=== PATIENT | male | born 1955 | race Caucasian/White ===

== ENCOUNTER 2017-02-21 07:43 | Inpatient (IN) ==
--- NOTE | 2017-02-21 08:07 | Anesthesia Evaluation PreOp ---
Date of Encounter: 02/21/17 Time of Encounter: 08:05 - Past History Planned Operation: Robotic Sigmoid Colectomy Cardiac History: Hyperlipidemia, Other (PAD) Pulmonary History: Former smoker RAD TECHNOLOGIST History: Denies Any Significant HX Other Medical History: Denies Any Significant HX, Other (Colon CA) Anesthesia History: No Prior Anesthetic Complications, Past Anesthesia ( Colonoscopy, Angiolplasty) Alcohol Use: recent Drug use: none Medications and Allergies Atorvastatin Calcium [Lipitor] 20 mg PO DAILY 04/27/16 [History] Tamsulosin [Flomax] 0.8 mg PO QPM 04/27/16 [History] Allergies No Known Allergies Allergy (Verified 01/29/17 11:55) - Meds/Allergy Pre-op Review Medications Reviewed: Yes Allergies Reviewed: Yes Beta Blockers on Current Med List: No Anesthesia Results - Labs Laboratory Tests 12/31/16 02/06/17 02/15/17 15:00 14:34 09:47 WBC 6.2 Hgb 12.9 Hct 40.1 Plt Count 234 INR 1.1 Sodium 137 Potassium 3.4 L Chloride 100 Carbon Dioxide 26 BUN 5 L Creatinine 0.78 - Imaging EKG: image reviewed (SR) Anesthesia Exam O2 Sat Height 1.83 m Height 1.83 m Weight 85.729 kg Weight 85.729 kg O2 Sat by Pulse Oximetry 100 Vital Signs Temp Pulse Resp BP Pulse Ox 97.9 F 90 18 147/75 100 02/21/17 08:00 02/21/17 08:00 02/21/17 08:00 02/21/17 08:00 02/21/17 08:00 Height: 6' Weight: 189# NPO (# of Hours): > 8 hrs Pain Scale: 0 Pain Scale Used: Numeric (1 - 10) - HEENT Pupil (Motor): Pupils equal, EOMI Mallampati: III Teeth: Poor dentition Oral Opening: Greater than 3 - RAD TECHNOLOGIST LOC: Oriented RAD TECHNOLOGIST Motor: Normal RUE, Normal LUE, Normal RLE, Normal LLE, Normal Face RAD TECHNOLOGIST Sensory: Normal: RUE, LUE, RLE, LLE, Face - Cardiac Rhythm: Regular Murmur: None JVD: No Carotid Bruit: No - Pulmonary Breath Sounds: bilateral Clear Respiratory Effort: Symmetrical Anesthesia Assess/Plan ASA Score: 2 Modified Humberto Scale for Level of Consciousness: Cooperative, oriented, and tranquil Anesthetic Plan: General Autologous Blood: Yes Monitoring Plan: Standard Monitors Recovery Plan: PACU
[2017-02-21] MEDS: Ringers Solution, Lactated 1,000 ML IVC SCH (08:38)
[2017-02-21] MEDS ORDERED: cefOXitin 2,000 MG in D5% in Water (Mini-Bag+) 100 ML IVPB ONE (08:43)
[2017-02-21] MEDS ORDERED: *HR* Heparin 5,000 UNIT/ML VIAL SQ ONE (08:44)
--- NOTE | 2017-02-21 08:46 | History & Physical Report ---
Date of Encounter: 02/21/17 Time of Encounter: 08:46 24 Hour HP Update - Instructions Instructions: If the History and Physical is less than 30 days old and was completed prior to A.M. admission and or procedure and has NOT been updated on calendar day of procedure please complete this update prior to performing procedure. - Update Patient reports changes in Medical Condition: No Changes in assessment/condition: No Changes in Medication: No Preop tests/diagnostics Reviewed: Yes Surgery Remains Indicated: Yes Consent for Planned Operative Procedure(s) Verified: Yes - Pre-Operative Checklist Preoperative Checklist Indicated: Yes Prophylactic Antibiotic Ordered: Yes Home Medications Include Beta Mary: No
[2017-02-21] MEDS ORDERED: *HR* Midazolam HCl 2 MG/2 ML VIAL ONE (09:30)
[2017-02-21] MEDS ORDERED: *HR* Propofol 200 MG/20 ML VIAL IVP ONE (09:30)
[2017-02-21] MEDS ORDERED: *HR* FentaNYL (PF) 100 MCG/2 ML VIAL ONE (09:30)
[2017-02-21] MEDS ORDERED: Lidocaine -MPF 2% 2 ML VIAL ONE (09:30)
[2017-02-21] MEDS ORDERED: *HR* Rocuronium Bromide 50 MG/5 ML VIAL ONE (09:30)
[2017-02-21] MEDS ORDERED: *HR* HYDROmorphone 2 MG/ML SYRINGE ONE (09:30)
[2017-02-21] MEDS ORDERED: Neostigmine Methylsulfate 3 MG/3 ML SYRINGE ONE (09:32)
[2017-02-21] MEDS ORDERED: *HR* HYDROmorphone (PF) 1 MG/ML SYRINGE IVP PRN (10:06)
[2017-02-21] MEDS ORDERED: Naloxone 0.4 MG/ML INJ IVP PRN ×2 (10:06→13:56)
[2017-02-21] MEDS ORDERED: Ondansetron 4 MG/2 ML VIAL IVP ONE (10:06)
[2017-02-21] MEDS ORDERED: *HR* Meperidine 25 MG/ML SYRINGE IVP PRN (10:06)
[2017-02-21] MEDS ORDERED: Albuterol 2.5 MG/3 ML NEBULIZER IH ONE (10:06)
[2017-02-21] MEDS ORDERED: *HR* Labetalol 100 MG/20 ML MDV IVP PRN (10:06)
[2017-02-21] MEDS ORDERED: Dexamethasone 4 MG/ML VIAL ONE (10:30)
[2017-02-21] MEDS ORDERED: Ondansetron 4 MG/2 ML VIAL ONE (10:30)
--- NOTE | 2017-02-21 13:47 | Anesthesia Evaluation Post Op ---
Date of Encounter: 02/21/17 Time of Encounter: 13:46 - Vital Signs Vital Signs: Vital Signs/O2 Sat, Most Current Temp Pulse Resp BP Pulse Ox 97.3 F L 62 14 149/75 100 02/21/17 13:25 02/21/17 13:45 02/21/17 13:45 02/21/17 13:45 02/21/17 13:45 - Lungs Lungs: Clear Ascult./Percussion - Airway Airway: Non-obstructed - Cardiovascular Regular Rate - Mental Status Mental Status: Alert & Oriented, Answers Appropriately - Pain Pain Scale: 0 Pain Scale used: Numeric (1 - 10) - Nausea Vomiting Nausea Vomiting: Not Present - Hydration Hydration: Ice chips, Gonzalez catheter - Discharge PostOp Status: Transfer Patient to floor
[2017-02-21] MEDS ORDERED: Ondansetron 4 MG/2 ML VIAL IVP PRN (13:56)
[2017-02-21] MEDS ORDERED: *HR* HYDROmorphone 20 MG/20 ML PCA IV PRN (13:58)
--- NOTE | 2017-02-21 14:02 | Operative Note ---
Date of procedure: 02/21/17 Pre-op diagnosis: Rectosigmoid cancer Post-op diagnosis: same Procedure: Robotic rectosigmoid resection with 29 mm EEA stapling Anesthesia: BEBA Surgeon: Morgan Freire Estimated blood loss (cc): 15 Condition: stable Disposition: same day Procedure in Detail: After informed consent, patient taken operating room placed supine position. After adequate sedation anesthesia patient was placed in a lithotomy position. After proper timeout a 12 mm cannula site was placed right superior to the umbilicus. Pneumoperitoneum was greater. A 13 mm cannula was placed in right lower quadrant. 5 mm camera was placed in the right upper quadrant. An 8 mm cannula was placed in subxiphoid region followed by another 8 mm in the left lower quadrant. Patient was placed in a headdown position. The robot was docked over the patient's left hip. Small bowel swept out of the pelvis. Rectosigmoid colon was then grasped and retracted cephalad. The peritoneum was then scored level of the sacral promontory. The left ureter was identified and kept on harm's way. The inferior mesenteric artery was then taken with a vessel sealer. The lateral rectosigmoid stalks were taken down the vessel sealer. The dissection was carried out down to approximate 4 cm above the pelvic floor. Rectosigmoid colon was dissected free from the retro-pubic tubercle region. Once it was freed a 45 mm robotic Endo staplers fired across the rectum. Once it was retracted and area was demarcated on the sigmoid colon for transection. Indocyanine green was infused and we had excellent perfusion. A counterincision was made in the suprapubic region. Dissection carried down the anterior rectus sheath. The rectus muscles were then divided in the midline with Anna clamp. Once they were split the rectosigmoid colon was delivered. Sayra bowel clamps are used to place across the colon proximal and distal and transected. Allis clamps are placed on the bowel and then a pursestring suture device placed on the colon. 3-0 Prolene suture was passed. A pursestring sutures and created and a 29 mm EEA anvil was placed. Suture was tied and secured. Colon was then placed back in the pelvis. The stapler was passed through the anal canal and to the rectal stump and then the spear was placed through the staple line. The anvil was then connected secured and fired. There were 2 excellent donuts. A leak test revealed no leak. At that point the procedure was terminated. All incisions are closed with 0 Vicryl suture and 4-0 Vicryl suture. Marcaine was inserted in the Pfannenstiel incision. She tolerated the procedure well.
[2017-02-21] MEDS: D5% in 0.45% NACL 1,000 ML IVC SCH (14:31)
[2017-02-22] MEDS: D5% in 0.45% NACL 1,000 ML IVC SCH (04:21)
[2017-02-22 04:37] LABS: Basophils % 0.1 %; Hematocrit 37.7 % (37.5-50.1); Hemoglobin 12.4 g/dL (12.9-16.9); Immature Granulocytes % 0.4 % (0-4); Lymphocytes # 0.7 K/mcL (0.6-4.6); Lymphocytes % 5.9 %; Mean Corpuscular HGB Conc 32.9 g/dL (31.6-35.5); Mean Corpuscular Volume 85.1 fL (83.0-100.0); Mean Platelet Volume 11.2 fL (9.4-12.4); Monocytes % 6.3 %; Neutrophils # 10.3 K/mcL (1.6-8.9); Platelet Count 193 K/mcL (140-400); Red Blood Count 4.43 M/mcL (4.19-5.50); Red Cell Distribution Width 13.2 % (11.5-14.5); Segmented Neutrophils % 87.3 %
[2017-02-22 04:40] LABS: Monocytes # 0.7 K/mcL (0.0-1.3)
[2017-02-22 04:58] LABS: BUN/Creatinine Ratio 4 (6-26); Calcium 8.9 mg/dL (8.6-10.8); Carbon Dioxide 26 mEq/L (19-29); Chloride 103 mEq/L (98-109); Glucose 132 mg/dL (70-99); Osmolality,Calculated 286 (280-300); Potassium 3.3 mEq/L (3.5-4.5); Sodium 139 mEq/L (136-145); eGFR For African Americans > 60 (> 60); eGFR For Non-African Americans > 60 (> 60)
[2017-02-22 05:02] LABS: Blood Urea Nitrogen 3 mg/dL (8-26)
[2017-02-22] MEDS: Ringers Solution, Lactated 1,000 ML IVC SCH (09:58)
--- NOTE | 2017-02-22 12:41 | General Surgery Progress Note ---
Date of Encounter: 02/22/17 Time of Encounter: 12:30 - Assessment and Plan (1) Rectosigmoid cancer Current Visit: Yes Status: Acute POD #1 from a Robotic rectosigmoid resection with 29 mm EEA stapling with Dr. Freire Advance to full liquid diet saline lock IV fluids Out of bed to chair and ambulate hallways TID Supportive care/pain control IS every 1 hour while awake Pathology pending (2) Hypertension Current Visit: Yes Status: Acute Hydralazine every 6 hours prn Continue to monitor and adjust as necessary Qualifiers: Hypertension type: unspecified secondary hypertension Qualified Code(s): I15.9 - Secondary hypertension, unspecified; I15 - Secondary hypertension (3) Hypokalemia Current Visit: Yes Status: Acute Replace potassium Repeat am labs (4) DVT prophylaxis Current Visit: Yes Status: Acute Heparin 5,000 units SQ twice daily for DVT prophylaxis EPCDs to bilateral lower extremities for DVT prophylaxis Subjective Patient reports: still having pain (post-surgical (well controlled)), tolerating liquids well, flatus, no bowel movement, afebrile Objective Vital Signs - Last 8 Hours Temp Pulse Resp BP Pulse Ox 02/22/17 10:59 98.8 F 69 16 167/70 98 02/22/17 07:00 98.1 F 65 14 178/70 96 Intake and Output 02/21/17 02/22/17 02/22/17 23:59 07:59 15:59 Intake Total 600 / 600 1000 / 1000 Output Total 1275 / 1275 1075 / 1075 950 / 950 Balance -675 / -675 -75 / -75 -950 / -950 Intake: IV Fluids 1000 / 1000 D5% And 0.45% Nacl 1000 1000 / 1000 Ml Bag 1,000 ML @ 75 mls/ hr IVC .[id number] DELILAH Rx#: [id number] Oral 600 / 600 0 / 0 Output: Catheter 1275 / 1275 1075 / 1075 950 / 950 Other: Weight 87.8 kg Patient Weight 02/22/17 23:59 Weight 87.8 kg - General physical appearance well developed, well nourished, no distress - Eyes normal ocular movement - ENT normal mucosa, atraumatic, normocephalic - Neck Neck exam: trachea midline - Respiratory normal expansion, normal respiratory effort, clear to auscultation - Cardiovascular Cardiovascular exam: Present: RRR - Abdomen Abdomen: Present: bowel sounds present, soft, tender (minimal expected post- operative tenderness) Abdominal Tenderness: suprapubic - Incision Incision: Present: clean and dry, intact - Genitourinary other (morelos catheter to SD with clear, yellow urine) - Neurologic CN 2-12 grossly intact - Psychiatric oriented to time, oriented to person, oriented to place, speech is normal, memory intact - Labs 02/22/17 04:02 02/22/17 04:02 Diabetes panel 02/22/17 Range/Units 04:02 Sodium 139 (136-145) mEq/L Potassium 3.3 L (3.5-4.5) mEq/L Chloride 103 (98-109) mEq/L Carbon Dioxide 26 (19-29) mEq/L BUN 3 L (8-26) mg/dL Creatinine 0.73 (0.72-1.25) mg/dL Glucose 132 H (70-99) mg/dL Calcium 8.9 (8.6-10.8) mg/dL Calcium panel 02/22/17 Range/Units 04:02 Calcium 8.9 (8.6-10.8) mg/dL Pituitary panel 02/22/17 Range/Units 04:02 Sodium 139 (136-145) mEq/L Potassium 3.3 L (3.5-4.5) mEq/L Chloride 103 (98-109) mEq/L Carbon Dioxide 26 (19-29) mEq/L BUN 3 L (8-26) mg/dL Creatinine 0.73 (0.72-1.25) mg/dL Glucose 132 H (70-99) mg/dL Calcium 8.9 (8.6-10.8) mg/dL Adrenal panel 02/22/17 Range/Units 04:02 Sodium 139 (136-145) mEq/L Potassium 3.3 L (3.5-4.5) mEq/L Chloride 103 (98-109) mEq/L Carbon Dioxide 26 (19-29) mEq/L BUN 3 L (8-26) mg/dL Creatinine 0.73 (0.72-1.25) mg/dL Glucose 132 H (70-99) mg/dL Calcium 8.9 (8.6-10.8) mg/dL - VTE Documentation of Mechanical Device: Intermittent pneumatic compression device Consult Discharge Plan - Plan Referrals: Liza Melendez DO [Primary Care Provider] - Lelia Pringle CNP [Advanced Practice Nurse] - 03/14/17 10:15 am - Attending Attestation I examined this patient and my medical decision-making was reviewed with the X RAY TECHNICIAN/PA/Advanced Practice Nurse/Resident Physician. I agree with the documented findings, disposition and treatment plan as described except to the extent set forth below.
[2017-02-22] MEDS: *HR* Heparin 5,000 UNIT/ML VIAL SQ SCH (17:03)
[2017-02-23 04:47] LABS: Basophils % 0.1 %; Hemoglobin 12.2 g/dL (12.9-16.9); Immature Granulocytes % 0.3 % (0-4); Lymphocytes # 0.7 K/mcL (0.6-4.6); Lymphocytes % 7.9 %; Mean Corpuscular HGB Conc 33.9 g/dL (31.6-35.5); Mean Corpuscular Hemoglobin 28.5 pg (28.0-33.3); Mean Corpuscular Volume 84.1 fL (83.0-100.0); Mean Platelet Volume 11.3 fL (9.4-12.4); Monocytes # 0.6 K/mcL (0.0-1.3); Monocytes % 6.3 %; Neutrophils # 7.6 K/mcL (1.6-8.9); Platelet Count 162 K/mcL (140-400); Red Blood Count 4.28 M/mcL (4.19-5.50); Red Cell Distribution Width 13.3 % (11.5-14.5); Segmented Neutrophils % 85.4 %
[2017-02-23 05:02] LABS: BUN/Creatinine Ratio 6 (6-26); Blood Urea Nitrogen 4 mg/dL (8-26); Calcium 8.8 mg/dL (8.6-10.8); Carbon Dioxide 27 mEq/L (19-29); Chloride 98 mEq/L (98-109); Glucose 138 mg/dL (70-99); Osmolality,Calculated 279 (280-300); Potassium 3.3 mEq/L (3.5-4.5); Sodium 135 mEq/L (136-145); eGFR For African Americans > 60 (> 60); eGFR For Non-African Americans > 60 (> 60)
[2017-02-23] MEDS: *HR* Heparin 5,000 UNIT/ML VIAL SQ SCH ×2 (05:21→18:16)
[2017-02-23] MEDS: Aspirin Enteric Coated 325 MG Tablet PO SCH (09:07)
--- NOTE | 2017-02-23 13:38 | General Surgery Progress Note ---
Date of Encounter: 02/23/17 Time of Encounter: 13:38 - Assessment and Plan (1) Rectosigmoid cancer Current Visit: Yes Status: Acute POD #2 from a Robotic rectosigmoid resection with 29 mm EEA stapling with Dr. Freire Feeling better. Had a bm. +bs, +flatus Will advance feeds to full liquid for lunch and if he tolerates will advance to soft foods for dinner. If he tolerates that will consider discharge. saline lock IV fluids Out of bed to chair and ambulate hallways TID Supportive care/pain control IS every 1 hour while awake Pathology pending (2) Hypertension Current Visit: Yes Status: Acute Hydralazine PRN Qualifiers: Hypertension type: unspecified secondary hypertension Qualified Code(s): I15.9 - Secondary hypertension, unspecified; I15 - Secondary hypertension (3) DVT prophylaxis Current Visit: Yes Status: Acute (4) Hypokalemia Current Visit: Yes Status: Acute K+ 3.3 this am. Will give 40meq PO potassium chloride will recheck bmp this afternoon. Subjective Patient reports: feels better, still having pain, pain is less, flatus, bowel movement Narrative: Patient seen and examined. Feeling better today. Did have a bm yesterday. Denies nausea. Tolerating clear liquid diet. Afebrile. WBC 8.9 Objective Vital Signs - Last 8 Hours Temp Pulse Resp BP Pulse Ox 02/23/17 12:00 98.1 F 71 16 167/56 100 02/23/17 06:54 98.1 F 70 16 123/68 95 Intake and Output 02/22/17 02/23/17 02/23/17 23:59 07:59 15:59 Intake Total 100 / 100 250 / 250 Output Total 475 / 475 500 / 500 200 / 200 Balance -375 / -375 -250 / -250 -200 / -200 Intake: Oral 100 / 100 250 / 250 Output: Urine 475 / 475 500 / 500 200 / 200 Other: # Bowel Movements 1 1 Weight 84.822 kg Patient Weight 02/23/17 23:59 Weight 84.822 kg - Additional Exam - General physical appearance well developed, well nourished, no distress - Eyes normal ocular movement - ENT normal mucosa, atraumatic, normocephalic - Neck Neck exam: trachea midline - Respiratory normal expansion, normal respiratory effort, clear to auscultation - Cardiovascular Cardiovascular exam: Present: RRR - Abdomen Abdomen: Present: bowel sounds present, soft, tender (minimal expected post- operative tenderness) Abdominal Tenderness: suprapubic - Incision Incision: Present: clean and dry, intact - Neurologic CN 2-12 grossly intact - Psychiatric oriented to time, oriented to person, oriented to place, speech is normal, memory intact - Labs 02/23/17 03:58 02/24/17 04:41 Diabetes panel 02/23/17 Range/Units 03:58 Sodium 135 L (136-145) mEq/L Potassium 3.3 L (3.5-4.5) mEq/L Chloride 98 (98-109) mEq/L Carbon Dioxide 27 (19-29) mEq/L BUN 4 L (8-26) mg/dL Creatinine 0.69 L (0.72-1.25) mg/dL Glucose 138 H (70-99) mg/dL Calcium 8.8 (8.6-10.8) mg/dL Calcium panel 02/23/17 Range/Units 03:58 Calcium 8.8 (8.6-10.8) mg/dL Pituitary panel 02/23/17 Range/Units 03:58 Sodium 135 L (136-145) mEq/L Potassium 3.3 L (3.5-4.5) mEq/L Chloride 98 (98-109) mEq/L Carbon Dioxide 27 (19-29) mEq/L BUN 4 L (8-26) mg/dL Creatinine 0.69 L (0.72-1.25) mg/dL Glucose 138 H (70-99) mg/dL Calcium 8.8 (8.6-10.8) mg/dL Adrenal panel 02/23/17 Range/Units 03:58 Sodium 135 L (136-145) mEq/L Potassium 3.3 L (3.5-4.5) mEq/L Chloride 98 (98-109) mEq/L Carbon Dioxide 27 (19-29) mEq/L BUN 4 L (8-26) mg/dL Creatinine 0.69 L (0.72-1.25) mg/dL Glucose 138 H (70-99) mg/dL Calcium 8.8 (8.6-10.8) mg/dL - VTE Documentation of Mechanical Device: Intermittent pneumatic compression device Consult Discharge Plan - Plan Referrals: Liza Melendez DO [Primary Care Provider] - Lelia Pringle MEETING COORDINATOR [Advanced Practice Nurse] - 03/14/17 10:15 am - Attending Attestation I examined this patient and my medical decision-making was reviewed with the CUSTOMER ENGAGEMENT ANALYST/PA/Advanced Practice Nurse/Resident Physician. I agree with the documented findings, disposition and treatment plan as described except to the extent set forth below. I reviewed the physical exam and assessment with the internist present. Patient has no abdominal pain and has been ambulating. Tolerating full liquid diet. Hypokalemia noted and replaced. Will advance to soft diet and will repeat his afternoon labs to see if his hypokalemia is still present. Consider discharge home either this evening or tomorrow morning.
[2017-02-23 16:37] LABS: BUN/Creatinine Ratio 8 (6-26); Blood Urea Nitrogen 6 mg/dL (8-26); Carbon Dioxide 30 mEq/L (19-29); Chloride 97 mEq/L (98-109); Glucose 77 mg/dL (70-99); Magnesium 1.6 mg/dL (1.6-2.6); Osmolality,Calculated 280 (280-300); Potassium 3.4 mEq/L (3.5-4.5); Sodium 137 mEq/L (136-145); eGFR For African Americans > 60 (> 60); eGFR For Non-African Americans > 60 (> 60)
[2017-02-23] MEDS ORDERED: Magnesium Sulfate 1 GM in D5% in Water 100 ML IVPB ONE (17:46)
[2017-02-24 05:15] LABS: BUN/Creatinine Ratio 8 (6-26); Blood Urea Nitrogen 6 mg/dL (8-26); Calcium 8.6 mg/dL (8.6-10.8); Carbon Dioxide 28 mEq/L (19-29); Chloride 102 mEq/L (98-109); Glucose 131 mg/dL (70-99); Osmolality,Calculated 287 (280-300); Potassium 3.5 mEq/L (3.5-4.5); Sodium 139 mEq/L (136-145); eGFR For African Americans > 60 (> 60); eGFR For Non-African Americans > 60 (> 60)
[2017-02-24] MEDS: *HR* Heparin 5,000 UNIT/ML VIAL SQ SCH (05:17)
[2017-02-24 06:35] VITALS: BP 154/74
--- NOTE | 2017-02-24 08:46 | Discharge Summary ---
<Olivier Parra - Last Filed: 02/24/17 08:58> Date of Encounter: 02/24/17 Time of Encounter: 08:42 - Discharge Diagnosis (1) Rectosigmoid cancer Priority: Primary Status: Chronic (2) Hypertension Priority: Secondary Status: Chronic Qualifiers: Hypertension type: unspecified secondary hypertension Qualified Code(s): I15.9 - Secondary hypertension, unspecified; I15 - Secondary hypertension (3) DVT prophylaxis Priority: Secondary Status: Acute (4) Hypokalemia Priority: Secondary Status: Chronic - Discharge Medications Home Medications: Atorvastatin Calcium [Lipitor] 20 mg PO DAILY 04/27/16 [History] Tamsulosin [Flomax] 0.8 mg PO QPM 04/27/16 [History] Aspirin Enteric Coated [Aspirin EC] 325 mg PO DAILY 02/21/17 [History] Allergies/Adverse Reactions: Allergies No Known Allergies Allergy (Verified 02/21/17 08:18) General Surgery Exam Initial Vital Signs Temp Pulse Resp BP Pulse Ox 97.9 F 90 18 147/75 100 02/21/17 08:00 02/21/17 08:00 02/21/17 08:00 02/21/17 08:00 02/21/17 08:00 - General physical appearance well developed, well nourished, no distress - Neck trachea midline - Respiratory normal expansion, clear to auscultation - Cardiovascular Cardiovascular exam: Present: RRR, no murmurs/rubs/gallops - Abdomen Abdomen general surgery: Present: bowel sounds present, soft, tender (expected post op incisional tenderness) - Incision Incision: Present: clean and dry, intact - Neurologic Present: CN 2-12 grossly intact - Psychiatric Psychiatric general surgery: Present: A&Ox3 Date of admission: 02/21/17 11:10 Primary care physician: Liza Melendez DO Discharging clinician: Justin Cuevas Anticipated date of discharge: 02/24/17 - Patient Status Disposition: Home, Self-Care Condition: Good Overall status at discharge: patient is progressing back to baseline - Discharge Instructions Follow Up With: Liza Melendez DO [Primary Care Provider] - Lelia Pringle CNP [Advanced Practice Nurse] - 03/14/17 10:15 am Additional Instructions: Post-operative Instructions: Follow up with Nichelle Chilton You can shower but no tub bath until instructed Wash incisions with soap and water and pat dry daily No lifting/pushing/pulling greater than 15 lb. for a total of 4 weeks from the date of surgery No driving until off narcotics and able to safely react in the car May climb stairs - Diet and Activity Activity: increase activity as tolerated Diet: advance to your usual diet, other (eat foods high in potassium) - Hospital Course Hospital course: Mr. Mesa is a 61 year old male who was scheduled to have Robotic rectosigmoid resection for malignancy resection. On 02/21/17 he presented to [facility] for his surgical procedure. After informed consent, patient taken operating room placed supine position. After adequate sedation anesthesia patient was placed in a lithotomy position. After proper timeout a 12 mm cannula site was placed right superior to the umbilicus. Pneumoperitoneum was greater. A 13 mm cannula was placed in right lower quadrant. 5 mm camera was placed in the right upper quadrant. An 8 mm cannula was placed in subxiphoid region followed by another 8 mm in the left lower quadrant. Patient was placed in a headdown position. The robot was docked over the patient's left hip. Small bowel swept out of the pelvis. Rectosigmoid colon was then grasped and retracted cephalad. The peritoneum was then scored level of the sacral promontory. The left ureter was identified and kept on harm's way. The inferior mesenteric artery was then taken with a vessel sealer. The lateral rectosigmoid stalks were taken down the vessel sealer. The dissection was carried out down to approximate 4 cm above the pelvic floor. Rectosigmoid colon was dissected free from the retro-pubic tubercle region. Once it was freed a 45 mm robotic Endo staplers fired across the rectum. Once it was retracted and area was demarcated on the sigmoid colon for transection. Indocyanine green was infused and we had excellent perfusion. A counterincision was made in the suprapubic region. Dissection carried down the anterior rectus sheath. The rectus muscles were then divided in the midline with Anna clamp. Once they were split the rectosigmoid colon was delivered. Sayra bowel clamps are used to place across the colon proximal and distal and transected. Allis clamps are placed on the bowel and then a pursestring suture device placed on the colon. 3-0 Prolene suture was passed. A pursestring sutures and created and a 29 mm EEA anvil was placed. Suture was tied and secured. Colon was then placed back in the pelvis. The stapler was passed through the anal canal and to the rectal stump and then the spear was placed through the staple line. The anvil was then connected secured and fired. There were 2 excellent donuts. A leak test revealed no leak. At that point the procedure was terminated. All incisions are closed with 0 Vicryl suture and 4-0 Vicryl suture. Marcaine was inserted in the Pfannenstiel incision. He tolerated the procedure well. Post-operatively he remained afebrile, was not tachycardic nor tachypneic. He did not have a leukocytosis. There was no redness/swelling/concern for infection around the incision site. He was treated with oral potassium for mild hypokalemia with response into normal limits. He was instructed on proper wound care. His vital signs were stable at the time of discharge. - Time Spent with Patient Total time spent providing and/or coordinating discharge services: Greater than 30 minutes Labs on day of discharge: Labs from last 24 hours 02/24/17 02/23/17 04:41 15:41 Sodium 139 137 Potassium 3.5 3.4 L Chloride 102 97 L Carbon Dioxide 28 30 H BUN 6 L 6 L Creatinine 0.71 L 0.73 Est GFR ( Amer) > 60 > 60 Est GFR (Non-Af Amer) > 60 > 60 BUN/Creatinine Ratio 8 8 Glucose 131 H 77 Calculated Osmolality 287 280 Calcium 8.6 9.0 Magnesium 1.6 <Justin Cuevas M - Last Filed: 02/24/17 17:08> - Discharge Diagnosis (1) Rectosigmoid cancer Status: Chronic (2) Hypertension Status: Chronic Qualifiers: Hypertension type: unspecified secondary hypertension Qualified Code(s): I15.9 - Secondary hypertension, unspecified; I15 - Secondary hypertension (3) DVT prophylaxis Status: Acute (4) Hypokalemia Status: Chronic General Surgery Exam Initial Vital Signs Temp Pulse Resp BP Pulse Ox 97.9 F 90 18 147/75 100 02/21/17 08:00 02/21/17 08:00 02/21/17 08:00 02/21/17 08:00 02/21/17 08:00 Date of admission: 02/21/17 11:10 Primary care physician: Liza Melendez, DO - Hospital Course Hospital course: Mr. Mesa is a 61 year old male - Time Spent with Patient Total time spent providing and/or coordinating discharge services: Labs on day of discharge: Labs from last 24 hours 02/24/17 04:41 Sodium 139 Potassium 3.5 Chloride 102 Carbon Dioxide 28 BUN 6 L Creatinine 0.71 L Est GFR ( Amer) > 60 Est GFR (Non-Af Amer) > 60 BUN/Creatinine Ratio 8 Glucose 131 H Calculated Osmolality 287 Calcium 8.6 - Attending Attestation I examined this patient and my medical decision-making was reviewed with the BOLT LABELER/PA/Advanced Practice Nurse/Resident Physician. I agree with the documented findings, disposition and treatment plan as described except to the extent set forth below. I noted the physical exam findings or lab results and agree with the above plan.
[2017-02-24] MEDS: Aspirin Enteric Coated 325 MG Tablet PO SCH (08:51)
== END 2017-02-24 11:32 | disposition home or self-care (01) | DRG 331 ==
LOC: SAMDAY 07:43 → 3ANU 11:10
PROVIDERS: ADMIT Surgery; ATTEND Surgery